=== PATIENT | female | born 1980 | race Two or more races ===

== ENCOUNTER 2024-04-29 15:22 | Outpatient (CLI) | payer BC, SELFPAY ==
[2024-04-29 16:13] LABS: Hematocrit 36.5 % (37.0-47.0); Hemoglobin 11.7 g/dL (12.0-15.0)
== END 2024-04-29 15:23 | disposition home or self-care (01) ==
PROVIDERS: PCP Internal Medicine; Visit Provider Obstetrics & Gynecology
DX: D21.9 Benign neoplasm of connective and other soft tissue, unspecified (principal)
CPT/HCPCS: 36415; 85014; 85018; 86850; 86900; 86901

== ENCOUNTER 2024-05-08 04:38 | Day surgery (SDC) | payer BC, SELFPAY ==
[2024-04-27 15:12] VITALS: BMI 32.5
--- NOTE | 2024-04-27 15:20 | PC.NURSE ---
Report to the Outpatient Waiting Room, entrance under the green pavilion located off [facility], at time _0830_ on date _[id number]_. Planned Procedure Time: _1030_.? Time changes happen often and if your time is changed the preop area will call you the afternoon before. - You and your visitor will be asked to self-screen and do not enter if you have any COVID symptoms. Please call surgeon if you need to reschedule. - A mask is optional within the hospital at this time. Patients may have clear liquids (water, carbonated beverages, clear teas, apple juice) until 3 hours prior to surgery with a maximum of 20 ounces. - No food from midnight until time of surgery and no smoking Take only the following medications with a SIP of water on the morning of surgery: ___None DO NOT STOP ANY OF YOUR OTHER PRESCRIPTION MEDICATIONS PRIOR TO SURGERY EXCEPT THE FOLLOWING Medications to discontinue per physician None Please no make-up, nail cypriot, hairspray, perfume, deodorant, or body powder the day of surgery.? No jewelry (including any body piercings) or valuables the day of surgery, leave them at home.? Please take a shower or bath the night before, or the morning of, surgery with an antibacterial soap.? Wear comfortable, loose fitting clothing.? . - Jewelry must be removed prior to entering the operating room.? Rings and piercings that are not removed may be cut off. - The hospital will not accept responsibility for valuables.? - Please leave all valuables, including medications, at home the day of surgery. If you are going home after surgery, a licensed shag truck driver must drive you home.? - NO public transportation without another adult if you receive anesthesia. - We recommend that an adult stay with you for 24 hours following discharge. - We also recommend that you do not drive, make important decision, drink alcoholic beverages, or take any drugs that were not prescribed by your health care provider for at least 24 hours after your discharge time. Follow any additional instructions given to you from your surgeon. Telephone instructions given to __Sayra___and asked if any additional questions and then verbalized understanding. Patient advised to call surgeon office or pre surgery nurse liaison [phone] if any additional questions.
--- NOTE | 2024-05-07 07:45 | P.HP_ITS ---
H&P: HPI History of Present Illness Date/Time: 05/07/24 07:45 Chief Complaint: Pelvic pain excessive heavy bleeding Narrative: 43-year-old female 0 admitted for laparoscopy hysteroscopy dilatation curettage. Her complaints are excessive heavy bleeding and pelvic pain. Ultrasound shows thickened endometrium multiple fibroids. [facility] Social History Social History Smoking status: Never smoker Alcohol intake: current Drinks per week: 2 Living arrangements: with family Spiritual care concerns: No Meds Home Medications and Allergies Home Medications Medication Instructions Recorded Confirmed Type No Home Medications 04/27/24 04/27/24 History Allergies Allergy/AdvReac Type Severity Reaction Status Date / Time No Known Allergies Allergy Verified 04/27/24 15:32 Exam Const: General: cooperative, healthy appearing and comfortable Nutritional Appearance: average body habitus Orientation/consciousness: oriented to person, oriented to place and oriented to time Resp: Effort & Inspection: normal respiratory effort Cardio: Rate: regular rate Rhythm: regular rhythm Heart sounds: S1 normal heart sound present and S2 normal heart sound present GI: Inspection: normal to inspection : External Female Exam: normal external appearance Speculum Exam - Vagina: normal appearance of the vagina Speculum Exam - Cervix: normal appearance of the cervix Bimanual exam- vagina & uterus: enlarged and Uterine tenderness Bimanual Exam- Adnexa, other: tender bilaterally Assessment and Plan Assessment and plan (1) Excessive bleeding: Code(s): R58 - Hemorrhage, not elsewhere classified Status: Acute (2) Pelvic pain: Code(s): R10.2 - Pelvic and perineal pain Status: Acute (3) Enlarged uterus: Code(s): N85.2 - Hypertrophy of uterus Status: Acute Plan Will proceed with laparoscopy/hysteroscopy/dilatation and curettage
[2024-05-08] VITALS (7 sets, daily range): BP systolic 91–140; BP diastolic 63–88; PULSE 56–87; RESP 12–16; TEMP 36.1–36.7; O2SAT 99–100
--- NOTE | 2024-05-08 07:00 | WPDHPUPDATE1 ---
History and Physical Update Update Date/Time: 05/08/24 07:00 History and Physical has been reviewed, including an updated exam of the patient. There are NO changes in the patient's condition. Risks, benefits, and alternatives have been discussed and questions answered. Patient agrees to proceed with procedure.
[2024-05-08] MEDS: ACETAMINOPHEN 500 MG TABLET 1000 MG PO (09:10)
[2024-05-08] MEDS: KETOROLAC 15 MG/ML VIAL (*BKC) IV PUSH (09:15)
[2024-05-08] MEDS: LACTATED RINGERS 1,000 ML 30 ML IV CONT ×2 (09:15→10:54)
--- NOTE | 2024-05-08 09:58 | WPDANESEPPF ---
Anes - Initial Pre Proc Eval Procedure: Operation Date: 05/08/24 10:30 Proposed Procedures p Diagnostic Laparoscopy, Hysteroscopy, Dilatation and Curettage - Khalif Hennessy MD Date/Time: 05/08/24 09:58 Surgeon: Khalif Hennessy MD Pre Op Diagnosis: pelvic pain, heavy bleeding dyspurenia,fibroids Patient Data Age: 43 Gender: F Height: 1.55 m Weight: 80.6 kg Last Vital Signs Temp 98.0 F 05/08/24 08:53 Pulse 87 05/08/24 08:53 Resp 16 05/08/24 08:53 BP 140/88 05/08/24 08:53 Pulse Ox 100 05/08/24 08:53 O2 Del Method Room Air 05/08/24 08:53 Allergies Allergy/AdvReac Type Severity Reaction Status Date / Time No Known Allergies Allergy Verified 05/08/24 08:52 Home Medications Medication Instructions Recorded Confirmed Type hydrocodone 5 mg-acetaminophen 325 1 tablet PO Q4H PRN pain #20 tabs 05/08/24 Rx mg tablet Patient hx anesthesia problems: none Family hx anesthesia problems: none Results Review: All pre-operative results and documents have been reviewed as part of the pre-operative evaluation. REPLACED BY [facility] Social History Social History Smoking status: Never smoker Alcohol intake: current Drinks per week: 2 Living arrangements: with family Spiritual care concerns: No Anes - Eval Final PreProcedure Day of Procedure 05/08/24 09:58 Patient weight: obese Heart: regular rate and rhythm Lungs: clear to auscultation Airway: Mallampati scale class II Neurological: alert and oriented Last oral intake: >/= 8 hours ASA classification: II Emergent: no Anesthetic plan: proceed Anesthesia type and monitoring: general ETT and standard monitoring Results Review: All pre-operative results and documents have been reviewed as part of the pre-operative evaluation. 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 Informed Consent: The patient's anesthetic plan and its attendant risks and benefits were discussed with the patient/family/POA. Questions were solicited and answers provided to the satisfaction of the patient/family/POA.
--- NOTE | 2024-05-08 10:53 | P.OP_ITS ---
Procedure Note - Detailed Date of Procedure 05/08/24 Pre-op Diagnosis pelvic pain, heavy bleeding dyspurenia,fibroids Post-op Diagnosis Same (With endometriosis and uterine) Procedure Performed laparoscopy with destruction of endometriosis hysteroscopy/ polypectomy/dilatation and curettage Surgeon Khalif Hennessy MD Anesthesia General Indications this is a 43-year-old female with pelvic pain excessive heavy bleeding with fibroid seen ultrasound Findings fibroid uterus. Small area of endometriosis along right uterosacral ligament. Small area of endometriosis anteriorly on the uterus. Normal-appearing ovaries and tubes. Normal-appearing appendix. On hysteroscopy the endometrium was irregular there appeared to be 2 small polyps. Description of Procedure The patient was prepped draped in the sterile fashion placed dorsal lithotomy position. Excellent general endotracheal anesthesia weighted speculum placed posterior fornix vagina. Anterior lip of the cervix grasped with a single-tooth tenaculum. Garcia's cannula inserted the cervix and attached to the single- tooth. The bladder was emptied of clear urine the weighted speculum was removed and the gloves were changed. An infraumbilical incision made in the Veress needle passed in the abdomen. Abdomen filled with CO2 gas [id number]. The 5mm trocar advanced with the optic scope no injury seen. Patient placed in Trendelenburg and a suprapubic incision made. 5Mm trocar advanced under direct visualization assuring no injury. The uterus was noted to have several small fibroids. Lochia back or rocks. There was an area of endometriosis on the anterior portion of the uterus and this was cauterized at 35 w per 2nd with monopolar cautery the cul-de-sac had about 15cc of serosanguineous fluid and this was removed and then irrigated. Small area of endometriosis was seen along the uterosacral ligament on the right and this was cauterized at 35 w per 2nd. No other abnormalities were seen in photo documentation was undertaken. The trocars were removed from the abdomen after gas been removed from the abdomen. The incisions closed with 4-0 Monocryl and glue. Attention was turned to the hysteroscopy portion. Uterus sounded to 8cm. Serial dilatation with fragmented dilators performed followed by passage of the 5mm visualizing hysteroscope using normal saline as visualizing medium. Couple small polyps were seen in the uterine lining was irregular. Each fallopian tube os could be seen clearly. Using the reticulating device the polyps were removed without difficulty the remainder of the surface was curetted and the the instruments removed. The patient was awakened went to recovery in satisfactory condition. All sponge, needle, instrument counts were correct. There were no immediate complications Estimated Blood Loss 5 Drains No Packing No Pathology Yes Complications No immediate complications Condition Stable Disposition PACU
[2024-05-08] MEDS: fentaNYL CITRATE INJ (*CRX) 100 MCG/2 ML VIAL 25 MCG IV PUSH (11:07)
--- NOTE | 2024-05-08 11:10 | SUR.PHASEI ---
SIMPLE MASK REMOVED 1116
[2024-05-08] MEDS: oxyCODONE HCL (*CRX) 5 MG TAB IR PO (12:17)
== END 2024-05-08 12:45 | disposition home or self-care (01) ==
PROVIDERS: PCP Internal Medicine; Visit Provider Obstetrics & Gynecology
PROC: 0UDB8ZZ Extraction of Endometrium, Via Natural or Artificial Opening Endoscopic (ICD-10-PCS; CPT 58558; principal; 2024-05-08 10:30)
DX: R93.89 Abnormal findings on diagnostic imaging of other specified body structures (principal); N80.3C1 Endometriosis of the right uterosacral ligament, unspecified depth; N80.319 Endometriosis of the anterior cul-de-sac, unspecified depth; D25.9 Leiomyoma of uterus, unspecified; E66.9 Obesity, unspecified; Z68.33 Body mass index [BMI] 33.0-33.9, adult; Z79.891 Long term (current) use of opiate analgesic
CPT/HCPCS: 58558; 58662; 88305; A9270; J1100; J1885; J2003; J2250; J2405; J2704; J3010; J7120

== ENCOUNTER 2025-06-15 11:58 | Outpatient (CLI) | payer BC, SELFPAY ==
[2025-06-15 13:22] LABS: Hematocrit 36.4 % (37.0-47.0); Hemoglobin 11.6 g/dL (12.0-15.0); Immature Granulocyte Percent A 0.4 % (0-0.5); Lymphocytes Absolute Auto 2.73 K/mm3 (0.9-3.2); Mean Corpuscular HGB Conc 31.9 g/dl (32-36); Mean Corpuscular Hemoglobin 28.3 pg (26-34); Mean Corpuscular Volume 88.8 fl (80-100); Nucleated Red Blood Cells Absolute Auto 0.000 K/mm3 (0.0-0.012); Nucleated Red Blood Cells Perc 0.0 % (0.0-0.2); Platelet Count Result 335 k/mm3 (150-375); Red Blood Count 4.10 M/mm3 (4.2-5.4); White Blood Count 6.9 K/mm3 (4.5-10.0)
== END 2025-06-15 11:59 | disposition home or self-care (01) ==
PROVIDERS: PCP Family Medicine; Visit Provider Obstetrics & Gynecology
DX: R58 Hemorrhage, not elsewhere classified (principal)
CPT/HCPCS: 36415; 85025; 86850; 86900; 86901

== ENCOUNTER 2025-06-25 00:21 | Day surgery (SDC) | payer BC, SELFPAY ==
--- NOTE | 2025-06-11 16:30 | SUR.PREOP ---
[facility] has started construction of its new state of the art ER which will open Spring 2026. With this, we anticipate parking may be a challenge for some our surgical patients and families. Parking spaces are limited but are available for all Surgical, obstetrics, and ER patients sharing this lot. If you arrive and find you are having a hard time finding a parking space, please note that we understand the challenges, please drive around the hospital and park near Hospital Entrance 1. When you enter this entrance, you can ask a volunteer to direct or take you back to the surgical waiting area to check in. We appreciate everyone?s understanding of these expected challenges while we build for your future. Report to the Outpatient Waiting Room, entrance under the green pavilion located off [address], at time _6am_ on date _06/25/25__. Planned Procedure Time: _730__.? Time changes happen often and if your time is changed the preop area will call you the afternoon before. - You and your visitor will be asked to self-screen and do not enter if you have any COVID symptoms. Please call surgeon if you need to reschedule. - A mask is optional within the hospital at this time. Patients may have clear liquids (water, carbonated beverages, clear teas, apple juice) until 3 hours prior to surgery with a maximum of 20 ounces. - No food from midnight until time of surgery and no smoking, or chewing tobacco (or any form of nicotine). No chewing gum, candy or mints. . Take only the following medications with a SIP of water on the morning of surgery: __none__ DO NOT STOP ANY OF YOUR OTHER PRESCRIPTION MEDICATIONS PRIOR TO SURGERY EXCEPT THE FOLLOWING Hold all vitamins and supplements for 3 days per anesthesiologist. Medications to discontinue per physician __none__ Date to take last dose_n/a__ Please no make-up, nail taiwanese, hairspray, perfume, deodorant, or body powder the day of surgery.? No jewelry (including any body piercings) or valuables the day of surgery, leave them at home.? Please take a shower or bath the night before, or the morning of, surgery with an antibacterial soap.? Wear comfortable, loose fitting clothing.? - Jewelry must be removed prior to entering the operating room.? Rings and piercings that are not removed may be cut off. - The hospital will not accept responsibility for valuables.? - Please leave all valuables, including medications, at home the day of surgery. If you are going home after surgery, a licensed motor coach driver must drive you home.? - NO public transportation without another adult if you receive anesthesia. - We recommend that an adult stay with you for 24 hours following discharge. - We also recommend that you do not drive, make important decision, drink alcoholic beverages, or take any drugs that were not prescribed by your health care provider for at least 24 hours after your discharge time.. Follow any additional instructions given to you from your surgeon. Telephone instructions given to _Sayra__and asked if any additional questions and then verbalized understanding. Patient advised to call surgeon office or pre surgery nurse liaison [phone] if any additional questions.
[2025-06-11 16:41] VITALS: BMI 33.8
--- NOTE | 2025-06-22 07:18 | P.HP_ITS ---
H&P: HPI History of Present Illness Date/Time: 06/22/25 07:18 Chief Complaint: Uterine fibroids/endometriosis/pelvic pain and dyspareunia refractory to medical therapy Narrative: This 44-year-old female 0 admitted for robotic hysterectomy bilateral salpingectomy secondary to uterine fibroids and endometriosis she complains of pain discomfort dyspareunia. No medications have been helpful she is not int erested in at this age. Risks and benefits of this procedure reviewed including not exclusive , aspiration pneumonia, bleeding, transfusion, perforation injury to bowel, bladder, ureters, or other internal organs with need for open laparotomy. She received the [employer] handout entitled hysterectomy as well as the de [facility] Luis handout. She had all questions answered. She asked to proceed. [facility] Social History Social History Smoking status: Never smoker Alcohol intake: current Drinks per week: 3 Living arrangements: with family Spiritual care concerns: No Meds Home Medications and Allergies Home Medications ?Medication ?Instructions ?Recorded ?Confirmed ?Type No Home Medications 06/14/25 06/14/25 H istory Allergies Allergy/AdvReac Type Severity Reaction Status Date / Time No Known Allergies Allergy Verified 06/11/25 16:33 Exam Const: General: cooperative, healthy appearing, comfortable, well groomed and overweight Orientation/consciousness: oriented to person, oriented to place and oriented to time Resp: Effort & Inspection: normal respiratory effort Cardio: Rate: regular rate Rhythm: regular rhythm Heart sounds: S1 normal heart sound present and S2 normal heart sound present GI: Inspection: normal to inspection : External Female Exam: normal external appearance Speculum Exam - Vagina: normal appearance of the vagina Speculum Exam - Cervix: normal appearance of the cervix Bimanual exam- vagina & uterus: enlarged and Uterine tenderness Bimanual Exam- Adnexa, other: normal adnexae Assessment and Plan Assessment and plan (1) Excessive bleeding: Code(s): R58 - Hemorrhage, not elsewhere classified Status: Acute (2) Pelvic pain: Code(s): R10.2 - Pelvic and perineal pain Status: Acute (3) Enlarged uterus: Code(s): N85.2 - Hypertrophy of uterus Status: Acute (4) Uterine fibroid: Code(s): D25.9 - Leiomyoma of uterus, unspecified Status: Acute Plan Proceed with robotic total vaginal hysterectomy and bilateral salpingectomy
[2025-06-25] VITALS (10 sets, daily range): BP systolic 95–129; BP diastolic 57–81; PULSE 65–99; RESP 10–18; TEMP 36.3–37.2; O2SAT 98–100
--- OUTSIDE RECORDS SUMMARY | 2025-06-25 00:24 | XMS_ITS | Clinical Summary ---
Author Organization [facility] [employer] Address [address] [place] [address] Care Team Providers Care Parcel Post Truck Driver Name Role Phone Kenney Callaway MD Primary Care Provider [phone] Source Comments [facility] [employer],non-[place] Affiliates and Associated Physician Practices is amultiple site organization consisting of ambulatory clinics and hospital sitesin [place], [place], [place] and [place]. This disclosure is being madepursuant to the Care Everywhere program and may not contain all information available regarding this patient. Last updated 18.[employer] Allergies No known active allergies Medications * Be aware that medications may not be up to date on this document. Alwaysverify current medications with the patient. No known medications Social History Tobacco Use Types Packs/Day Years Used Date Smoking Tobacco: Never Assessed Comments Unknown Sex and Gender Information Value Date Recorded Sex Assigned at Not on file Legal Sex Female 12:30 PM CDT Gender Identity Not on file Sexual Orientation Not on file Last Filed Vital Signs Vital Sign Reading Time Taken Comments Blood Pressure 118/66 09/30/2018 11:15 AM BANK ACCOUNTANT Pulse 112 09/30/2018 11:15 AM BANK ACCOUNTANT Temperature 37.5 C (99.5 F) 09/30/2018 11:15 AM BANK ACCOUNTANT Respiratory Rate - - Oxygen Saturation 97% 09/30/2018 11:15 AM BANK ACCOUNTANT Inhaled Oxygen Concentration - - Weight 80.7 kg (178 lb) 09/30/2018 11:15 AM BANK ACCOUNTANT Height 154.9 cm (5' 1) 09/30/2018 11:15 AM BANK ACCOUNTANT Body Mass Index 33.63 09/30/2018 11:15 AM BANK ACCOUNTANT Plan of Treatment Health Maintenance Due Date Last Done Comments COLOGUARD (AGES 45-75) - COL ON CA SCREENING 1979 COLON MONITORING 1979 COLONOSCOPY - COLON CA SCREENING 1979 CT COLONOGRAPHY - COLON CA SCREENING 1979 Colorectal Cancer Screening 1979 FIT - COLON CA SCREENING 1979 FLEX SIG - COLON CA SCREENING 1979 LIPID TESTING 1979 MAMMOGRAM 1979 HIV SCREENING 10/19/1994 HEPATITIS C SCREENING 10/15/1997 DTAP/TDAP/TD VACCINES (1 - Tdap) 10/19/1998 HEPATITIS B VACCINE (1 of 3 - 19+ 3-dose series) 10/19/1998 Cervical Cancer Screening 10/19/2000 PAP SMEAR 10/19/2000 HPV VACCINE (1 - 3-dose SCDM series) 10/19/2006 PAP with HPV 10/19/2009 DEPRESSION SCREENING 08/05/2024 COVID-19 VACCINE (1 - 2024-2 6 season) 2025 INFLUENZA VACCINE (#1) 2025 ZOSTER VACCINE (1 of 2) 10/19/2029 HIB VACCINE Aged Out No longer eligi ble based on patient's age to complete this topic MENINGOCOCCAL (Group B) VACC INE SHARED DECISION-MAKING Aged Out No longer eligibl e based on patient's age to complete this topic MENINGOCOCCAL GROUPS A/C/Y/W VACCINE Aged Out No longer eligible b ased on patient's age to complete this topic PNEUMOCOCCAL VACCINE Aged Out No long er eligible based on patient's age to complete this topic Insurance [employer] SELF PAY NO INSURANCE Member Subscriber Plan / Payer (Ef fective for All Dates) Name:Sayra Soria Member ID:Not on file Relation to Subscriber:Not on file Name:SAYRA SORIA Subscriber ID:Not on file (Home) Address: [address] [place] [address] Payer ID:Not on file Group ID:Not on file Type:Self Pay Address: [facility] Care Teams Parcel Post Truck Driver Relationship Specialty Start Date End Date Kenney Callaway MD [facility] [place] [address] PCP - General Family Medicine 11/14/17
--- NOTE | 2025-06-25 06:26 | WPDHPUPDATE1 ---
History and Physical Update Update Date/Time: 06/25/25 06:26 History and Physical has been reviewed, including an updated exam of the patient. There are NO changes in the patient's condition. Risks, benefits, and alternatives have been discussed and questions answered. Patient agrees to proceed with procedure.
[2025-06-25] MEDS: ACETAMINOPHEN 500 MG TABLET 1000 MG PO ×3 (06:28→19:08)
[2025-06-25] MEDS: LACTATED RINGERS 1,000 ML 30 ML IV CONT ×2 (06:30→08:39)
[2025-06-25] MEDS: KETOROLAC 15 MG/ML VIAL (*BKC) IV PUSH (06:35)
--- NOTE | 2025-06-25 06:52 | WPDHPUPDATE1 ---
History and Physical Update Update Date/Time: 06/25/25 06:52 History and Physical has been reviewed, including an updated exam of the patient. There are NO changes in the patient's condition. Risks, benefits, and alternatives have been discussed and questions answered. Patient agrees to proceed with procedure. patient wants removal of ovaries
--- NOTE | 2025-06-25 07:24 | WPDANESEPPF ---
Anes - Initial Pre Proc Eval Procedure: Operation Date: 06/25/25 07:30 Proposed Procedures p Robotic Assisted Total Vaginal Hysterectomy with Bilateral Salpingo Oophorectomy - Khalif Hennessy MD Date/Time: 06/25/25 07:24 Surgeon: Khalif Hennessy MD Pre Op Diagnosis: Endometriosis, Fibroids, Dyspareunia. Dysmenorrhea Patient Data Age: 44 Gender: F Height: 1.55 m Weight: 82.654 kg Last Vital Signs Temp 36.5 C 06/25/25 06:15 Pulse 82 06/25/25 06:15 Resp 16 06/25/25 06:15 BP 122/81 06/25/25 06:15 Pulse Ox 100 06/25/25 06:15 O2 Del Method Room Air 06/25/25 06:15 Allergies Allergy/AdvReac Type Severity Reaction Status Date / Time No Known Allergies Allergy Verified 06/25/25 06:39 Home Medications ?Medication ?Instructions ?Recorded ?Confirmed ?Type hydrocodone 5 mg-acetaminophen 325 1 tablet PO Q4H PRN pain #20 tabs 06/25/25 Rx mg tablet Patient hx anesthesia problems: none Family hx anesthesia problems: none Results Review: All pre-operative results and documents have been reviewed as part of the pre-operative evaluation. [facility] Social History Social History Smoking status: Never smoker Alcohol intake: current Drinks per week: 3 Living arrangements: with family Spiritual care concerns: No Anes - Eval Final PreProcedure Day of Procedure 06/25/25 07:24 Patient weight: obese Heart: regular rate and rhythm Lungs: normal air movement Airway: Mallampati scale class III Neurological: alert and oriented Last oral intake: >/= 8 hours ASA classification: II Emergent: no Anesthetic plan: proceed Anesthesia type and monitoring: general ETT and standard monitoring Results Review: All pre-operative results and documents have been reviewed as part of the pre-operative evaluation. Informed Consent: The patient's anesthetic plan and its attendant risks and benefits were discussed with the patient/family/POA. Questions were solicited and answers provided to the satisfaction of the patient/family/POA.
[2025-06-25] MEDS: ceFAZolin 2 GM in SODIUM CHLORIDE 0.9% IV 50 ML 100 ML IVPB (07:56)
--- NOTE | 2025-06-25 08:15 | S_PTH ---
PATIENT: Sayra Soria LOC: [facility] U#:[id number] AGE/SX: 44/F ROOM: RE06/25/[address]: Khalif Hennessy MD : 1980 BED: DIS: 06/26/2025 SPEC #: [id number] RECD: 06/25/25 10:09 STATUS: CJ REQ #: [id number] DAISY: 06/25/25 08:[address]: Khalif Gracia DEPT: [facility] Surgical RECD BY: Daphne Vasquez ENTERED: 06/25/25 10:10 SP TYPE: Surgical OTHR DR: Kenney CallawayMD Tissues: A - Uterus Procedures: Hematoxylin and Eosin Stain Gross and Microscopic Level 5
--- NOTE | 2025-06-25 08:23 | W.PM.PROC2 ---
Procedure Note - Detailed Date of Procedure 06/25/25 Pre-op Diagnosis Endometriosis, Fibroids, Dyspareunia. Dysmenorrhea Post-op Diagnosis Same Procedure Performed Robotic hysterectomy bilateral salpingo-oophorectomy Surgeon Khalif Hennessy MD Anesthesia General Indications 44-year-old female symptomatic uterine fibroids pelvic heavy bleeding Findings Fibroid uterus. Description of Procedure Patient was prepped and draped in the normal sterile fashion placed in dorsal lithotomy position. Under excellent general trach anesthesia weighted speculum placed in posterior fornix. Anterior lip of the cervix grasped with a single uterus sounded to 9cm. Serial dilatation fragmented passage of 8. PETER and 3. Cold cup. Next the 16 [place] catheter was placed in bladder weighted speculum and the single-tooth removed. The gloves were changed. A supraumbilical incision made Veress needle in the. Abdomen filled with CO2 gas to 15 of mercury 8mm trocar advanced in the abdomen. Downside visualized seen. Patient placed in Trendelenburg right left lateral quadrant incisions made. 8mm trocars advanced under direct visualization assuring no injury. The right upper quadrant incision made the 8mm trocar advanced under direct visualization assuring injury. The robot was docked. Attention was turned to the mortgage loan counselor. A large fibroid uterus was noted. The round ligament was grasped on the left clamped, burned, cut. Anteriorly the of bladder flap was formed by sharply dissecting the peritoneum and reflecting bladder caudally away from the cervix and uterus to the opposite ligament which was clamped, burned, cut. Next the infundibulopelvic structure on left was skeletonized as the patient desired tube this was clamped, burned, and brought to level of previously cut ligament. In similar fashion remove the right ovary and tube on the right. The infundibulopelvic structure was skeletonized clamping burning cutting and bringing this to of previously cut ligament. The cardinal broad ligaments on the left were then serially skeletonized clamping burning cutting and hugging the cervix uterus until the large tortuous blood vessels could be seen on the left these were individually clamped, burned, cut. In similar fashion the cardinal broad ligaments on the right were serially skeletonized clamping burning cutting and hugging the cervix and uterus until the vessels on the right could be seen these were individually clamped, burned, cut. Blanching of the uterus was noted and a colpotomy incision made cervix uterus ovaries and tubes removed through the vagina. The vagina then closed with continuous running V lock from lateral edge to lateral edge back to the midline. Irrigation undertaken until clear hemostasis was assured. The robot was undocked. The gas removed from the abdomen. The incisions closed with 4-0 Monocryl and glue. The patient was awakened went recovery in satisfactory condition. All sponge, needle, instrument counts were correct. There were no immediate complications Estimated Blood Loss 25 Drains No Packing No Pathology Yes Complications No immediate complications Condition Stable Disposition PACU
--- NOTE | 2025-06-25 08:28 | P.DS_ITS ---
DS: Admitting Diagnosis Discharge Date 06/26/2020 Admitting Diagnosis Uterine fibroids/pelvic DS: Discharge Diagnosis Discharge Diagnosis (1) Excessive bleeding: Code(s): R58 - Hemorrhage, not elsewhere classified Status: Acute (2) Pelvic pain: Code(s): R10.2 - Pelvic and perineal pain Status: Acute (3) Enlarged uterus: Code(s): N85.2 - Hypertrophy of uterus Status: Acute (4) Uterine fibroid: Code(s): D25.9 - Leiomyoma of uterus, unspecified Status: Acute DS: Summary Hospital Course Reason for hospitalization: Patient was admitted for robotic total vaginal hysterectomy bilateral salpingo-oophorectomy on 06/25/2025 Hospital Course: Patient's hospital course unremarkable. She remained afebrile. She was up, voiding without difficulty, eating regular diet, ambulating, and generally without complaints. Time Spent with Patient Time attestation: Total time spent providing and/or coordinating discharge services: Exam Const: General: cooperative, healthy appearing, comfortable, well groomed and overweight Orientation/consciousness: oriented to person, oriented to place and oriented to time Resp: Effort & Inspection: normal respiratory effort Cardio: Rate: regular rate Rhythm: regular rhythm Heart sounds: S1 normal heart sound present and S2 normal heart sound present GI: Inspection: normal to inspection : External Female Exam: normal external appearance Speculum Exam - Vagina: normal appearance of the vagina Speculum Exam - Cervix: normal appearance of the cervix Bimanual exam- vagina & uterus: enlarged and Uterine tenderness Bimanual Exam- Adnexa, other: normal adnexae DS: Data Data Completed and Pending Pending studies at discharge: Pending at discharge 06/25/25 08:15 Surgical [PTH] Routine Discharge Plan Discharge Patient Disposition: Home Patient Language: Portuguese Stand Alone Forms: General Discharge Instructions Follow-up/Referrals: Khalif Gracia MD [Physician, TECHNOLOGY ADMINISTRATOR] Discharge Medications: New hydrocodone-acetaminophen 5-325 mg tablet 1 tablet PO Q4H PRN (Reason: pain) Qty: 20 0RF
[2025-06-25] MEDS: fentaNYL CITRATE INJ (*CRX) 100 MCG/2 ML VIAL 25 MCG IV PUSH ×5 (09:09→09:29)
--- NOTE | 2025-06-25 10:05 | ADMGEN ---
This patient, Sayra Soria, was admitted to OB 2nd Floor Room 288-00. Patient/family oriented to hospital policies and general routines including ID bracelet, bed and alarms, visiting hours, pain management, procedures, bathroom and other care routines, personal items, smoking policy, room service/diet, and visiting hours. Information on how to activate the Rapid Response Team has been discussed. Patient/Family are encouraged to report perceived risks to care and to ask questions if they do not understand what they are told or what they should do.
[2025-06-25] MEDS: ENOXAPARIN 40 MG/0.4 ML SYRINGE SUB-Q (10:25)
[2025-06-25] MEDS: oxyCODONE HCL (*CRX) 5 MG TAB IR 10 MG PO ×3 (10:25→22:54)
[2025-06-25] MEDS: DOCUSATE SODIUM 100 MG CAPSULE PO ×2 (10:25→16:41)
[2025-06-25] MEDS: DEXTROSE 5%/LACTATED RINGERS 1,000 ML 125 ML IV CONT (10:26)
[2025-06-25] MEDS: KETOROLAC 30 MG/ML VIAL (*BKC) IV PUSH ×2 (12:36→19:08)
[2025-06-25] MEDS: SIMETHICONE 80 MG TAB.CHEW PO ×2 (12:36→16:41)
[2025-06-26] MEDS: ACETAMINOPHEN 500 MG TABLET 1000 MG PO ×2 (01:30→07:21)
[2025-06-26] MEDS: KETOROLAC 30 MG/ML VIAL (*BKC) IV PUSH (01:30)
[2025-06-26 04:24] LABS: Hematocrit 33.7 % (37.0-47.0); Hemoglobin 11.0 g/dL (12.0-15.0); Immature Granulocyte Percent A 0.6 % (0-0.5); Lymphocytes Absolute Auto 2.22 K/mm3 (0.9-3.2); Mean Corpuscular HGB Conc 32.6 g/dl (32-36); Mean Corpuscular Hemoglobin 28.6 pg (26-34); Mean Corpuscular Volume 87.8 fl (80-100); Nucleated Red Blood Cells Absolute Auto 0.000 K/mm3 (0.0-0.012); Nucleated Red Blood Cells Perc 0.0 % (0.0-0.2); Platelet Count Result 297 k/mm3 (150-375); Red Blood Count 3.84 M/mm3 (4.2-5.4); White Blood Count 10.2 K/mm3 (4.5-10.0)
[2025-06-26 04:30] VITALS: BP 104/66; PULSE 69; RESP 14; TEMP 36.8; O2SAT 96
[2025-06-26] MEDS: IBUPROFEN 600 MG TABLET PO (07:21)
[2025-06-26] MEDS: SIMETHICONE 80 MG TAB.CHEW PO (07:21)
--- NOTE | 2025-06-26 08:07 | PM.GYNPNOP ---
TRANSITIONAL CARE MANAGER - A/P Assessment and plan (1) Excessive bleeding: Code(s): R58 - Hemorrhage, not elsewhere classified Status: Acute (2) Pelvic pain: Code(s): R10.2 - Pelvic and perineal pain Status: Acute (3) Enlarged uterus: Code(s): N85.2 - Hypertrophy of uterus Status: Acute (4) Uterine fibroid: Code(s): D25.9 - Leiomyoma of uterus, unspecified Status: Acute Plan home Postoperative Procedures: Procedures Operation Date: 06/25/25 07:30 Actual Procedure Side Surgeon p Robotic Assisted Total Vaginal Hysterectomy with Bilateral Salpingo Oophorectomy Bilateral Khalif Hennessy MD Time Spent With Patient Time: Total time spent is greater than 50% in coordination of care (as documented) at patient's floor/unit and/or counseling patient: Time with patient: less than 15 minutes TRANSITIONAL CARE MANAGER- PN:Subj Post-Op Subjective Date/time seen: 06/26/25 08:07 Subjective: patient reports feeling better, patient has no complaints, patient desires discharge, pain is well controlled and patient is tolerating oral intake Exam Const: General: cooperative, healthy appearing, comfortable, well groomed and overweight Orientation/consciousness: oriented to person, oriented to place and oriented to time Resp: Effort & Inspection: normal respiratory effort Cardio: Rate: regular rate Rhythm: regular rhythm Heart sounds: S1 normal heart sound present and S2 normal heart sound present GI: Inspection: normal to inspection : External Female Exam: normal external appearance Speculum Exam - Vagina: normal appearance of the vagina Speculum Exam - Cervix: normal appearance of the cervix Bimanual exam- vagina & uterus: enlarged and Uterine tenderness Bimanual Exam- Adnexa, other: normal adnexae TRANSITIONAL CARE MANAGER - PN: Obj Data Vital Signs Vital Signs: Vital Signs - 24 hr 06/25/25 08:39 06/25/25 08:50 06/25/25 08:55 Temperature 97.3 F L Pulse Rate 70 79 66 Respiratory Rate 12 18 16 Blood Pressure 95/57 L 102/63 106/65 Pulse Oximetry 100 100 100 Oxygen Delivery Simple Face Mask Simple Face Mask Simple Face Mask Oxygen Flow Rate 8 8 8 06/25/25 09:10 06/25/25 09:25 06/25/25 09:40 Temperature Pulse Rate 66 76 72 Respiratory Rate 12 10 L 12 Blood Pressure 108/68 99/68 L 107/71 Pulse Oximetry 100 99 100 Oxygen Delivery Room Air Room Air Room Air Oxygen Flow Rate 06/25/25 10:05 06/25/25 10:10 06/25/25 15:00 Temperature 98.1 F 98.9 F Pulse Rate 65 79 Respiratory Rate 16 16 Blood Pressure 129/77 102/65 Pulse Oximetry 100 98 Oxygen Delivery Room Air Oxygen Flow Rate 06/25/25 15:00 06/25/25 19:00 06/25/25 19:00 Temperature 97.8 F Pulse Rate 99 99 Respiratory Rate 18 18 Blood Pressure 107/73 Pulse Oximetry 100 100 Oxygen Delivery Room Air Room Air Oxygen Flow Rate 06/26/25 04:30 06/26/25 04:30 Temperature 98.3 F Pulse Rate 69 69 Respiratory Rate 14 14 Blood Pressure 104/66 Pulse Oximetry 96 96 Oxygen Delivery Room Air Oxygen Flow Rate Intake/Output Intake/Output: Intake & Output 06/23/25 06/24/25 06/25/25 06/26/25 23:59 23:59 23:59 23:59 Intake Total 2590 Output Total 2280 800 Balance 310 -800 Meds/Results Medications: Active Medications Generic Name Dose Route Start Last Admin Trade Name Freq PRN Reason Stop Dose Admin Acetaminophen 1,000 mg 06/25/25 12:00 06/26/25 07:21 Acetaminophen 500 Mg Tablet PO 1,000 mg Q6HR JOSÉ ANTONIO Administration Docusate Sodium 100 mg 06/25/25 09:49 06/25/25 16:41 Docusate Sodium 100 Mg Capsule PO 100 mg BID JOSÉ ANTONIO Administration Enoxaparin Sodium 40 mg 06/25/25 09:49 06/25/25 10:25 Enoxaparin 40 Mg/0.4 Ml Syringe SUB-Q 40 mg DAILY JOSÉ ANTONIO Administration Ibuprofen 600 mg 06/26/25 06:00 06/26/25 07:21 Ibuprofen 600 Mg Tablet PO 600 mg Q6HR JOSÉ ANTONIO Administration Naloxone HCl 0.1 mg 06/25/25 09:49 Naloxone Hcl 0.4 Mg/Ml Vial IV PUSH Q2M PRN Respiratory rate less than 10 Ondansetron HCl 4 mg 06/25/25 09:49 Ondansetron Inj 4 Mg/2 Ml Vial IV PUSH Q6H PRN Nausea And Vomiting Oxycodone HCl 5 mg 06/25/25 09:49 Oxycodone Hcl (*Crx) 5 Mg Tab Ir PO Q4H PRN Pain Rated 4-6 Oxycodone HCl 10 mg 06/25/25 09:49 06/25/25 22:54 Oxycodone Hcl (*Crx) 5 Mg Tab Ir PO 10 mg Q6H PRN Administration Pain Rated 7-10 Simethicone 80 mg 06/25/25 12:00 06/26/25 07:21 Simethicone 80 Mg Tab.Chew PO 80 mg TIDWM JOSÉ ANTONIO Administration Labs 06/26/25 03:36 Labs: Laboratory Results - last 24 hr 06/26/25 03:36 WBC 10.2 H RBC 3.84 L Hgb 11.0 L Hct 33.7 L MCV 87.8 MCH 28.6 MCHC 32.6 RDW 13.5 Plt Count 297 MPV 8.5 Immature Gran % (Auto) 0.6 H Neut % (Auto) 71.3 Lymph % (Auto) 21.8 [place] % (Auto) 5.8 Eos % (Auto) 0.2 Baso % (Auto) 0.3 Lymph # (Auto) 2.22 [place] # (Auto) 0.6 Eos # (Auto) 0.0 Baso # (Auto) 0.0 Abs Immat Gran (auto) 0.06 H Absolute Neuts (auto) 7.3 H Absolute Nucleated RBC 0.000 Nucleated RBC % 0.0
[2025-06-26 08:26] VITALS: BP 119/71; PULSE 67; RESP 16; TEMP 37.1; O2SAT 100
[2025-06-26] MEDS: INFLUENZA VACCINE 45 MCG/0.5 ML SYRINGE IM (09:22)
[2025-06-28 11:46] LABS: BEDSIDEPREGUCG Negative (Negative)
== END 2025-06-26 09:58 | disposition home or self-care (01) ==
LOC: ANHSURGERY 06:26 → ANHOB2 09:50
PROVIDERS: PCP Family Medicine; Visit Provider Obstetrics & Gynecology
PROC: (CPT 58552; principal; 2025-06-25 07:30)
DX: D25.1 Intramural leiomyoma of uterus (principal); N83.8 Other noninflammatory disorders of ovary, fallopian tube and broad ligament; E66.9 Obesity, unspecified; Z68.34 Body mass index [BMI] 34.0-34.9, adult; Z79.891 Long term (current) use of opiate analgesic; Z23 Encounter for immunization
CPT/HCPCS: 58552; S2900; 36415; 85025; 88307; 90471; 90656; 99199; J0690; A9270; G0008; J1100; J1171; J1650; J1885; J2003; J2250; J2405; J2704; J3010; J7030; J7120; J7121